=== PATIENT | male | born 1945 | race Two or more races ===

== ENCOUNTER 2018-03-24 06:31 | Inpatient (IN) | payer MEDICARE ==
[2018-03-24] VITALS (18 sets, daily range): BP systolic 90–156; BP diastolic 42–83
[~2018-03-24] VITALS: Ht 182.9 cm; Wt 113.4 kg
[~2018-03-24 06:31] MED LIST: ASPIR 8181 MG ORAL; ATORVASTATIN CA20 MG ORAL; MACROBID100 MG ORAL; PLAVIX75 MG ORAL; TAMSULOSIN HCL0.4 MG ORAL; TOPROL PO; VITAMIN D400 INTLU ORAL
[2018-03-24] MEDS ORDERED: ceFAZolin sod 1 GM in NS 55 ML IVPB ONE (07:00)
[2018-03-24] MEDS ORDERED: cefOXitin 2gm Inj ONE (07:45)
[2018-03-24] MEDS ORDERED: Succinylcholine 20mg/ml 10ml vial ONE (07:46)
[2018-03-24] MEDS ORDERED: Zemuron 50mg/5ml Inj IV ONE (07:46)
[2018-03-24] MEDS ORDERED: fentaNYL 100 mcg/2 mL IV ONE (07:50)
[2018-03-24] MEDS ORDERED: Midazolam 2mg/2ml Inj ONE (07:50)
[2018-03-24] MEDS ORDERED: Lidocaine 1% MPF 10mg/ml 5ml ONE (07:54)
[2018-03-24] MEDS ORDERED: Propofol 200mg/20ml IV ONE (07:54)
[2018-03-24] MEDS ORDERED: ProvayBlue 5mg/ml 10ml amp INJ SCH (08:00)
[2018-03-24] MEDS ORDERED: Neostigmine 1mg/ml 10ml Inj ONE (08:30)
[2018-03-24] MEDS ORDERED: NS Irrig 1000ml ONE (08:30)
[2018-03-24] MEDS ORDERED: Sterile Water Irrig 1000ml IRRIG ONE (08:30)
[2018-03-24] MEDS ORDERED: LR 1000ml ONE (08:30)
--- NOTE | 2018-03-24 08:32 | Anethesia Preoperative Eval ---
Anesthesia Pre-op PMH/ROS General Date of Evaluation: Mar 24, 2018 Time of Evaluation: 08:31 Anesthesiologist: Sandra ASA Score: ASA 3 Mallampati Score Class I : Soft palate, uvula, fauces, pillars visible Class II: Soft palate, uvula, fauces visible Class III: Soft palate, base of uvula visible Class IV: Only hard plate visible Mallampati Classification: Class III Surgeon: Dagoberto Diagnosis: BPH Surgical Procedure: Prostatectomy Anesthesia History: none Family History: no anesthesia problems Allergies: Coded Allergies: No Known Allergies (Unverified , 03/24/18) Past Medical History Cardiovascular: Reports: HTN, CAD - stable no recent CP; Denies: FL, valve dz, arrhythmia, other Pulmonary: Reports: GARY; Denies: asthma, COPD, other Gastrointestinal/Genitourinary: Reports: GERD - mild, CRI - High creatinin level, other - BPH; Denies: ESRD Neurologic/Psychiatric: Denies: dementia, CVA, depression/anxiety, TIA, other Endocrine: Reports: DM - borderline; Denies: hypothyroidism, steroids, other HEENT: Denies: cataract (L), cataract (R), glaucoma, POINT LAY IRA (L), PO[place] LAY IRA (R), other Hematology/Immune: Reports: DVT - h/o L LE off xarelta; Denies: anemia, bleeding disorder, other Musculoskeletal/Integumentary: Reports: DJD; Denies: OA, RA, DDD, edema, other Other: obesity PMH Narrative: as above PSxH Narrative: Appendectomy, ex laparotomy, uvuloplasty coronary angiogram with stent placement Anesthesia Pre-op Phys. Exam Physician Exam Last Vital Signs Date Time Temp Pulse Resp B/P (MAP) Pulse Ox O2 Delivery O2 Flow Rate FiO2 03/24/18 07:45 Room Air 03/24/18 07:17 97.2 58 18 130/80 (97) 95 97.2 Constitutional: NAD Neurologic: CN 2-12 intact Cardiovascular: RRR, no M/R/G Respiratory: CTA Gastrointestinal: other - obesity Airway Exam Mallampati Score: Class III MO: limited Neck: short ROM: limited Teeth: missing Dentures: no upper, no lower Anesthesia Pre-op A/P Labs See chart Studies Pre-op Studies: EKG - SR, other - Negative stress test Risk Assessment & Plan Assessment: ASA 3 Plan: GA with ETT Status Change Before Surgery: No Pre-Antibiotics Drug: Cefoxitin 2 gr. Given Within 1 Hr of Incision: Yes Time Given: 08:50 Jameson Flores MD Mar 24, 2018 08:32
--- NOTE | 2018-03-24 08:40 | Pre-Procedure Note/Attestation ---
Pre-Procedure Note/Attestation Complete Prior to Procedure Planned Procedure: not applicable Procedure Narrative: open prostatectomy cystolopaxy Indications for Procedure Pre-Operative Diagnosis: bph bladder stones Attestation I attest that I discussed the nature of the procedure; its benefits; risks and complications; and alternatives (and the risks and benefits of such alternatives ), prior to the procedure, with the patient (or the patient's legal passenger relations representative). I attest that, if there was a reasonable possibility of needing a blood transfusion, the patient (or the patient's legal passenger relations representative) was given the [facility] standardized written summary, pursuant to the Peter Jesus Blood Safety Act ([place] Health and Safety Code # 1645, as amended). I attest that I re-evaluated the patient just prior to the surgery and that there has been no change in the patient's H&P, except as documented below: Micheal Arenas MD Mar 24, 2018 08:40
[2018-03-24] MEDS ORDERED: Morphine Sulfate 10mg/ml Inj ONE (09:21)
[2018-03-24] MEDS ORDERED: Glycopyrrolate 0.2mg/ml 1ml Vial ONE (09:25)
[2018-03-24] MEDS ORDERED: Sodium Chloride 10ml vial INJ ONE ×2 (09:25→09:40)
[2018-03-24] MEDS ORDERED: LR 1000ml 1,000 ML IVLG SCH (09:35)
[2018-03-24] MEDS ORDERED: ePHEDrine 50mg/ml Inj ONE (09:40)
[2018-03-24] MEDS ORDERED: DiphenhydrAMINE 50mg/ml Inj IVP PRN (09:45)
[2018-03-24] MEDS ORDERED: Morphine Sulfate 2mg/ml Inj(IV/IM USE ONLY) IVP PRN (09:45)
[2018-03-24] MEDS ORDERED: Neosporin Oint Ud Pkt TOPIC ONE (10:04)
--- NOTE | 2018-03-24 10:21 | Brief Operative Note ---
Immediate Post Operative Note Operative Note Pre-op Diagnosis: bph bladder stones Procedure: open prostatectomy cystolopaxy Post-op Diagnosis: same Post-op Diagnosis: same as pre-op Surgeon: René Arenas Anesthesia: general Specimen: yes Complications: none Condition: stable Fluids: 1000 Estimated Blood Loss: minimal Implant(s) used?: No Micheal Arenas MD Mar 24, 2018 10:21
--- NOTE | 2018-03-24 10:27 | Immediate Post-Op Evaluation ---
Immediate Post-Op Evalulation Immediate Post-Op Evalulation Procedure: Open prostatectomy Date of Evaluation: Mar 24, 2018 Time of Evaluation: 10:25 IV Fluids: 2000 Blood Products: Albumin 250 Estimated Blood Loss: 500 Urinary Output: n/a Blood Pressure Systolic: 105 Blood Pressure Diastolic: 52 Pulse Rate: 74 Respiratory Rate: 20 O2 Sat by Pulse Oximetry: 99 Temperature (Fahrenheit): 97.6 Pain Score (1-10): 1 Nausea: No Vomiting: No Complications none Patient Status: reacts, patent, extubated, none Hydration Status: adequate Jameson Flores MD Mar 24, 2018 10:27
[2018-03-24] MEDS: fentaNYL 100 mcg/2 mL IV PRN ×4 (10:43→11:18)
[2018-03-24 11:12] LABS: BASOPHILS % (AUTO) 0.5 % (0.0-2.0); EOSINOPHILS % (AUTO) 0.9 % (0.0-3.0); HEMATOCRIT 40.5 % (42.0-52.0); HEMOGLOBIN 13.5 G/DL (14.2-18.0); LYMPHOCYTES % (AUTO) 15.5 % (20.0-45.0); MEAN CORPUSCULAR VOLUME 86 FL (80-99); MONOCYTES % (AUTO) 4.2 % (1.0-10.0); NEUTROPHILS % (AUTO) 78.9 % (45.0-75.0); PLATELET COUNT 106 K/UL (150-450); RED CELL DISTRIBUTION WIDTH 12.4 % (11.6-14.8); WHITE BLOOD COUNT 8.4 K/UL (4.8-10.8)
[2018-03-24] MEDS ORDERED: Morphine Sulfate 4mg/ml Inj (IV USE ONLY) IVP PRN (11:26)
[2018-03-24] MEDS ORDERED: Morphine Sulfate 4mg/ml Inj (IV USE ONLY) ONE (11:28)
[2018-03-24 11:49] LABS: ANION GAP 11 mmol/L (5-15); BLOOD UREA NITROGEN 18 mg/dL (7-18); CALCIUM 8.3 MG/DL (8.5-10.1); CARBON DIOXIDE 24 MMOL/L (21-32); CHLORIDE 107 MMOL/L (98-107); CREATININE 1.8 MG/DL (0.55-1.30); POTASSIUM 4.9 MMOL/L (3.5-5.1); SODIUM 142 MMOL/L (136-145)
[2018-03-24] MEDS: D5 1/2NS w/KCl 20mEq 1,000 ML IV SCH ×2 (13:50→23:26)
[2018-03-24] MEDS: ceFAZolin sod 2 GM in D5W 110 ML IV SCH (16:12)
[2018-03-24] MEDS: Docusate 100mg cap ORAL SCH (17:31)
[2018-03-24] MEDS: HYDROmorphone 1mg/ml Carpuject IVP PRN (19:42)
[2018-03-25] MEDS: ceFAZolin sod 2 GM in D5W 110 ML IV SCH (00:14)
[2018-03-25] MEDS: HYDROmorphone 1mg/ml Carpuject IVP PRN ×4 (00:14→23:16)
[2018-03-25 00:55] VITALS: BP 150/68
[2018-03-25] MEDS: Norco 5mg/325mg tab ORAL PRN ×2 (02:58→15:04)
[2018-03-25 04:56] VITALS: BP 151/78
[2018-03-25 07:00] LABS: HEMATOCRIT 37.1 % (42.0-52.0); HEMOGLOBIN 12.4 G/DL (14.2-18.0); MEAN CORPUSCULAR VOLUME 86 FL (80-99); PLATELET COUNT 113 K/UL (150-450); RED BLOOD COUNT 4.33 M/UL (4.70-6.10); RED CELL DISTRIBUTION WIDTH 12.1 % (11.6-14.8); WHITE BLOOD COUNT 8.9 K/UL (4.8-10.8)
[2018-03-25 07:11] LABS: ANION GAP 8 mmol/L (5-15); BLOOD UREA NITROGEN 16 mg/dL (7-18); CALCIUM 8.2 MG/DL (8.5-10.1); CARBON DIOXIDE 26 MMOL/L (21-32); CHLORIDE 105 MMOL/L (98-107); CREATININE 1.5 MG/DL (0.55-1.30); POTASSIUM 4.4 MMOL/L (3.5-5.1); SODIUM 139 MMOL/L (136-145)
--- NOTE | 2018-03-25 07:25 | 48 Hour Post Anesthesia Eval ---
Post Anesthesia Evaluation Procedure: Open prostatectomy Date of Evaluation: Mar 25, 2018 Time of Evaluation: 07:23 Blood Pressure Systolic: 152 0: 84 Pulse Rate: 76 Respiratory Rate: 22 Temperature (Fahrenheit): 97.6 O2 Sat by Pulse Oximetry: 98 Airway: patent Nausea: No Vomiting: No Pain Intensity: 3 Hydration Status: adequate Cardiopulmonary Status: stable Mental Status/LOC: patient returned to baseline Follow-up Care/Observations: n/a Post-Anesthesia Complications: none Follow-up care needed: N/A Jameson Flores MD Mar 25, 2018 07:25
[2018-03-25 08:00] VITALS: BP 157/73
[2018-03-25] MEDS: Docusate 100mg cap ORAL SCH ×2 (08:57→17:27)
[2018-03-25] MEDS: Metoprolol Succinate XL 50mg tab ORAL SCH (09:25)
[2018-03-25] MEDS: D5 1/2NS w/KCl 20mEq 1,000 ML IV SCH ×2 (09:59→20:38)
[2018-03-25] MEDS ORDERED: Hydrogen Peroxide 473ml Bottle TOPIC ONE (10:00)
[2018-03-25] MEDS: Neosporin Oint 15gm TOPIC SCH ×2 (10:11→17:28)
[2018-03-25 12:00] VITALS: BP 136/78
--- NOTE | 2018-03-25 12:00 | History and Physical Report ---
DATE OF ADMISSION: 03/24/2018 INTERNAL MEDICINE CONSULTATION/HISTORY AND PHYSICAL HISTORY OF PRESENT ILLNESS: This is a 72-year-old male, who has undergone open prostatectomy and cystopexy by Dr. Micheal Arenas yesterday. He has had minimal blood loss. He is seen in the medical unit. He is sitting up in a chair without exertion, IV fluids are in place. He is tolerating ice chips. Medical history notable for history of cardiac stent for which he has been on Plavix for the last 10 years. He also has a history of prothrombin gene mutation and has been taking Xarelto in the past due to a DVT two years ago, but for the last year has only been on Plavix and aspirin. He is also known hypertensive on metoprolol, has hyperlipidemia on Lipitor. He has undergone surgery yesterday, which was uncomplicated. PAST MEDICAL HISTORY: Coronary artery disease, history of DVT, BPH, hypertension, hyperlipidemia, melanoma, prediabetes, prothrombin gene mutation, sleep apnea, and vitamin D deficiency. SOCIAL HISTORY: Noncontributory. No history of alcohol or tobacco usage. ALLERGIES: To Lipitor causing muscle aches. However, I note that he is still on Lipitor. He is also allergic to Zocor for same problem. REVIEW OF SYSTEMS: Denies any headaches, hematemesis, melena, hematochezia, night sweats, or weight loss. PHYSICAL EXAMINATION: GENERAL: Reveals a 72-year-old male. HEENT: Unremarkable. LUNGS: Clear breath sounds bilaterally. ABDOMEN: Soft. NEUROLOGIC: Nonfocal. LABORATORY DATA: Lab testing obtained this morning shows normal CBC and BMP, hemoglobin 12.4 and creatinine 1.5. IMPRESSION: 1. Postop day #1, status post open prostatectomy and cystopexy. 2. Hypertension. 3. History of DVT. 4. History of prothrombin gene mutation. 5. CAD, status post cardiac stent. DISCUSSION: Hold off on home medications. Given that his urine is still pink, I would avoid Plavix and aspirin. I will initiate SCDs given his high risk for DVT. Start him on clear liquid diet. Check laboratories in a.m. Continue bladder irrigation. Discussed in detail. We will follow carefully. Ankit Randle M.D. DR: LON JOB#: [id number] CC:
[2018-03-25 16:00] VITALS: BP 131/75
[2018-03-25] MEDS: Hydrogen Peroxide 473ml Bottle TOPIC SCH (17:28)
[2018-03-25 20:00] VITALS: BP 150/72
--- NOTE | 2018-03-25 22:00 | Operative Note - Dictated ---
DATE OF OPERATION: 03/24/2018 PREOPERATIVE DIAGNOSES: Benign prostatic hyperplasia, bladder stone, and recurrent urinary tract infections. POSTOPERATIVE DIAGNOSES: Benign prostatic hyperplasia, bladder stone, and recurrent urinary tract infections. OPERATION: Simple open retropubic prostatectomy with cystolitholapaxy. CONTROL ROOM OPERATOR: Micheal Arenas M.D. QUESTIONED DOCUMENTS EXAMINER: Taran Jones M.D. FINDINGS: Bladder stone, large prostate. INDICATIONS FOR SURGERY: The patient is well known to me from many, many years with history of BPH with alpha blockers and elevated PSA, had several biopsies, developed chronic UTIs. Cystoscopy showed presence of bladder stone. Treatment options were explained to him in great length including all potential complications. He signed the consent. DESCRIPTION OF SURGERY: The patient was brought to the operating room, placed in supine position, and prepped and draped in standard fashion. Under general anesthesia, a Pfannenstiel incision was made. Retropubic space was . The bladder was mobilized and cleared from surrounding fat. Prostate capsule was opened and the prostate adenoma was enucleated in one piece due to large size, approximately 150 g. Bladder neck was then inspected. Ureters were intact. There was a stone in the bladder, which was removed and sent for pathologic examination. Hemostatic sutures were placed at the 5 and 7 o'clock of the bladder neck. The bladder mucosa was advanced into the prostatic capsule. After that, a 24 three-way Berumen was placed and the capsule of the prostate was closed with a running suture of #0 Vicryl. The bladder was tested, no evidence of leaks. Estimated blood loss was approximately 50 mL. Berumen was irrigated and connected to CBI. The sponge count and instrument count was correct. Micheal Arenas M.D. DR: MAGDA JOB#: [id number] CC:
[2018-03-26] VITALS: BP 139/71
[2018-03-26 04:00] VITALS: BP 149/85
[2018-03-26] MEDS: D5 1/2NS w/KCl 20mEq 1,000 ML IV SCH (05:56)
[2018-03-26 06:45] LABS: HEMATOCRIT 35.1 % (42.0-52.0); HEMOGLOBIN 11.8 G/DL (14.2-18.0); MEAN CORPUSCULAR VOLUME 85 FL (80-99); PLATELET COUNT 115 K/UL (150-450); RED BLOOD COUNT 4.11 M/UL (4.70-6.10); RED CELL DISTRIBUTION WIDTH 11.8 % (11.6-14.8); WHITE BLOOD COUNT 9.6 K/UL (4.8-10.8)
[2018-03-26 07:15] LABS: ANION GAP 7 mmol/L (5-15); BLOOD UREA NITROGEN 18 mg/dL (7-18); CALCIUM 8.7 MG/DL (8.5-10.1); CARBON DIOXIDE 27 MMOL/L (21-32); CHLORIDE 104 MMOL/L (98-107); CREATININE 1.6 MG/DL (0.55-1.30); POTASSIUM 4.3 MMOL/L (3.5-5.1); SODIUM 138 MMOL/L (136-145)
[2018-03-26 08:00] VITALS: BP 144/76
[2018-03-26] MEDS: Metoprolol Succinate XL 50mg tab ORAL SCH (09:41)
[2018-03-26] MEDS: Docusate 100mg cap ORAL SCH ×2 (09:41→17:18)
--- NOTE | 2018-03-26 10:51 | Pulmonology Progress Note ---
Assessment/Plan Assessment/Plan IMPRESSION: 1. Postop day #2, status post open prostatectomy and cystopexy. 2. Hypertension. 3. History of DVT. 4. History of prothrombin gene mutation. 5. CAD, status post cardiac stent. DISCUSSION: Hold off on home medications. Given that his urine is still pink, I would avoid Plavix and aspirin. I will initiate SCDs given his high risk for DVT. Regular diet. Check laboratories in a.m. Continue bladder irrigation. Discussed in detail. I will follow carefully. Subjective Interval Events: urine still pink. Bladder irrigation continuing Constitutional: Reports: no symptoms HEENT: Repors: no symptoms Respiratory: Reports: no symptoms Cardiovascular: Reports: no symptoms Gastrointestinal/Abdominal: Reports: no symptoms Genitourinary: Reports: no symptoms Allergies: Coded Allergies: No Known Allergies (Unverified , 03/24/18) Objective Last 24 Hour Vital Signs Date Time Temp Pulse Resp B/P (MAP) Pulse Ox O2 Delivery O2 Flow Rate FiO2 03/26/18 09:41 95 144/76 03/26/18 08:00 98.0 95 21 144/76 (98) 99 98.0 03/26/18 04:00 99.9 86 19 149/85 (106) 94 99.9 03/26/18 00:00 98.0 80 18 139/71 (93) 98 98.0 03/25/18 23:46 98.5 03/25/18 21:00 Room Air 03/25/18 20:00 98.5 83 18 150/72 (98) 96 98.5 03/25/18 18:00 97.6 97.6 03/25/18 16:03 98.3 03/25/18 16:00 99.4 103 19 131/75 (93) 97 99.4 03/25/18 15:04 98.3 03/25/18 12:00 98.3 90 19 136/78 (97) 95 98.3 Intake and Output 03/25/18 03/26/18 19:00 07:00 Intake Total 1950 ml 1660 ml Output Total 750 ml 1950 ml Balance 1200 ml -290 ml Intake Oral 750 ml 560 ml IV Total 1200 ml 1100 ml Output Urine Total 750 ml 1950 ml General Appearance: no acute distress HEENT: normocephalic Respiratory/Chest: chest wall non-tender, lungs clear Cardiovascular: normal peripheral pulses, normal rate Abdomen: normal bowel sounds Laboratory Tests 03/26/18 05:50: White Blood Count 9.6, Red Blood Count 4.11L, Hemoglobin 11.8L, Hematocrit 35.1L , Mean Corpuscular Volume 85, Mean Corpuscular Hemoglobin 28.7, Mean Corpuscular Hemoglobin Concent 33.6, Red Cell Distribution Width 11.8, Platelet Count 115L, Mean Platelet Volume 8.4, Neutrophils (%) (Auto) , Lymphocytes (%) ( Auto) , Monocytes (%) (Auto) , Eosinophils (%) (Auto) , Basophils (%) (Auto) , Differential Total Cells Counted 100, Neutrophils % (Manual) 87H, Lymphocytes % (Manual) 6L, Monocytes % (Manual) 6, Eosinophils % (Manual) 0, Basophils % ( Manual) 0, Band Neutrophils 1, Platelet Estimate DecreasedL, Platelet Morphology Normal, Red Blood Cell Morphology Normal, Sodium Level 138, Potassium Level 4.3, Chloride Level 104, Carbon Dioxide Level 27, Anion Gap 7, Blood Urea Nitrogen 18, Creatinine 1.6H, Estimat Glomerular Filtration Rate , Glucose Level 130H, Calcium Level 8.7 Current Medications Medications (Trade) Dose Ordered Sig/Kam Route PRN Reason Start Time Stop Time Status Last Admin Dose Admin Acetaminophen (Tylenol) 650 mg Q6H PRN ORAL Mild Pain (Pain Scale 1-3) 03/24/18 13:30 04/23/18 13:29 Acetaminophen/ Hydrocodone Bitart ([place] 5/325) 1 tab Q4H PRN ORAL Moderate Pain (Pain Scale 4-6) 03/24/18 13:30 03/31/18 13:29 03/25/18 15:04 Dextrose/ Electrolytes 1,000 ml @ 100 mls/hr Q10H IV 03/24/18 14:00 04/23/18 13:59 03/26/18 05:56 Docusate Sodium (Colace) 100 mg TWICE A DAY ORAL 03/24/18 18:00 04/23/18 17:59 03/26/18 09:41 Hydrogen Peroxide (Hydrogen Peroxide) 1 applic BID TOPIC 03/25/18 18:00 04/24/18 17:59 03/25/18 17:28 Hydromorphone HCl (Dilaudid) 1 mg Q3H PRN IVP pain score 4-6 03/24/18 13:30 03/31/18 13:29 03/25/18 23:16 Metoprolol Succinate (Toprol XL) 50 mg DAILY ORAL 03/25/18 09:00 04/24/18 08:59 03/26/18 09:41 Neomycin/ Polymyxin/ Bacitracin (Neosporin Oint 15gm) 1 applic TWICE A DAY TOPIC 03/25/18 10:00 04/24/18 09:59 03/25/18 17:28 Ondansetron HCl (Zofran) 4 mg Q6H PRN IVP Nausea & Vomiting 03/24/18 13:30 04/23/18 13:29 Temazepam (Restoril) 7.5 mg QHS PRN ORAL Insomnia 03/24/18 21:00 03/31/18 20:59 03/26/18 01:51 Ankit Randle MD Mar 26, 2018 10:51
[2018-03-26] MEDS: Hydrogen Peroxide 473ml Bottle TOPIC SCH ×2 (11:00→17:19)
[2018-03-26] MEDS: Neosporin Oint 15gm TOPIC SCH ×2 (11:00→17:19)
[2018-03-26 12:00] VITALS: BP 149/71
[2018-03-26] MEDS: Ciprofloxacin 500mg tab ORAL SCH ×2 (13:15→21:02)
[2018-03-26 16:00] VITALS: BP 155/79
[2018-03-26 20:00] VITALS: BP 138/73
[2018-03-27] VITALS: BP 148/72
[2018-03-27 04:00] VITALS: BP 136/82
[2018-03-27 06:17] LABS: BASOPHILS % (AUTO) 0.4 % (0.0-2.0); EOSINOPHILS % (AUTO) 0.6 % (0.0-3.0); HEMATOCRIT 34.3 % (42.0-52.0); LYMPHOCYTES % (AUTO) 10.6 % (20.0-45.0); MEAN CORPUSCULAR VOLUME 86 FL (80-99); MONOCYTES % (AUTO) 5.9 % (1.0-10.0); NEUTROPHILS % (AUTO) 82.6 % (45.0-75.0); PLATELET COUNT 130 K/UL (150-450); RED BLOOD COUNT 4.01 M/UL (4.70-6.10); WHITE BLOOD COUNT 9.1 K/UL (4.8-10.8)
[2018-03-27 06:47] LABS: ANION GAP 7 mmol/L (5-15); BLOOD UREA NITROGEN 19 mg/dL (7-18); CALCIUM 9.1 MG/DL (8.5-10.1); CARBON DIOXIDE 28 MMOL/L (21-32); CHLORIDE 104 MMOL/L (98-107); CREATININE 1.5 MG/DL (0.55-1.30); SODIUM 139 MMOL/L (136-145)
[2018-03-27 08:00] VITALS: BP 135/70
[2018-03-27 08:38] VITALS: BP 135/70
[2018-03-27] MEDS: Hydrogen Peroxide 473ml Bottle TOPIC SCH (08:38)
[2018-03-27] MEDS: Ciprofloxacin 500mg tab ORAL SCH (08:38)
[2018-03-27] MEDS: Docusate 100mg cap ORAL SCH (08:38)
[2018-03-27] MEDS: Metoprolol Succinate XL 50mg tab ORAL SCH (08:38)
[2018-03-27] MEDS: Neosporin Oint 15gm TOPIC SCH (08:39)
--- NOTE | 2018-03-27 10:14 | Pulmonology Progress Note ---
Assessment/Plan Assessment/Plan IMPRESSION: 1. Postop day #3, status post open prostatectomy and cystopexy. 2. Hypertension. 3. History of DVT. 4. History of prothrombin gene mutation. 5. CAD, status post cardiac stent. DISCUSSION: DC home Given that his urine is still pink, I would avoid Plavix and aspirin. I Regular diet. Discontinue bladder irrigation. Discussed in detail. I will follow carefully. Subjective Interval Events: Doing well Constitutional: Reports: no symptoms Respiratory: Reports: no symptoms Gastrointestinal/Abdominal: Reports: no symptoms Genitourinary: Reports: no symptoms Allergies: Coded Allergies: No Known Allergies (Unverified , 03/24/18) Objective Last 24 Hour Vital Signs Date Time Temp Pulse Resp B/P (MAP) Pulse Ox O2 Delivery O2 Flow Rate FiO2 03/27/18 09:00 Room Air 03/27/18 08:38 91 135/70 03/27/18 08:00 98.0 91 20 135/70 (91) 96 98.0 03/27/18 04:00 98.6 76 18 136/82 (100) 96 98.6 03/27/18 00:00 99.2 79 19 148/72 (97) 96 99.2 03/26/18 21:00 Room Air 03/26/18 20:00 98.8 82 19 138/73 (94) 97 98.8 03/26/18 16:00 99.8 90 21 155/79 (104) 90 99.8 03/26/18 12:00 98.9 86 22 149/71 (97) 99 98.9 Intake and Output 03/26/18 03/27/18 19:00 07:00 Intake Total 3020 ml 1140 ml Output Total 3200 ml 2950 ml Balance -180 ml -1810 ml Intake Oral 3020 ml 1140 ml Output Urine Total 3200 ml 2950 ml # Bowel Movements 2 1 General Appearance: no acute distress HEENT: mucous membranes moist Respiratory/Chest: chest wall non-tender Cardiovascular: normal peripheral pulses, normal rate Abdomen: normal bowel sounds, soft, non tender Laboratory Tests 03/27/18 05:05: White Blood Count 9.1, Red Blood Count 4.01L, Hemoglobin 12.0L, Hematocrit 34.3L , Mean Corpuscular Volume 86, Mean Corpuscular Hemoglobin 29.8, Mean Corpuscular Hemoglobin Concent 34.8, Red Cell Distribution Width 12.0, Platelet Count 130L, Mean Platelet Volume 7.8, Neutrophils (%) (Auto) 82.6H, Lymphocytes (%) (Auto) 10.6L, Monocytes (%) (Auto) 5.9, Eosinophils (%) (Auto) 0.6, Basophils (%) (Auto) 0.4, Sodium Level 139, Potassium Level 4.0, Chloride Level 104, Carbon Dioxide Level 28, Anion Gap 7, Blood Urea Nitrogen 19H, Creatinine 1.5H, Estimat Glomerular Filtration Rate , Glucose Level 109H, Calcium Level 9.1 Current Medications Medications (Trade) Dose Ordered Sig/Kam Route PRN Reason Start Time Stop Time Status Last Admin Dose Admin Acetaminophen (Tylenol) 650 mg Q6H PRN ORAL Mild Pain (Pain Scale 1-3) 03/24/18 13:30 04/23/18 13:29 Acetaminophen/ Hydrocodone Bitart ([place] 5/325) 1 tab Q4H PRN ORAL Moderate Pain (Pain Scale 4-6) 03/24/18 13:30 03/31/18 13:29 03/25/18 15:04 Ciprofloxacin (Cipro 500mg tab) 500 mg Q12HR ORAL 03/26/18 12:15 04/02/18 12:14 03/27/18 08:38 Docusate Sodium (Colace) 100 mg TWICE A DAY ORAL 03/24/18 18:00 04/23/18 17:59 03/27/18 08:38 Hydrogen Peroxide (Hydrogen Peroxide) 1 applic BID TOPIC 03/25/18 18:00 04/24/18 17:59 03/27/18 08:38 Hydromorphone HCl (Dilaudid) 1 mg Q3H PRN IVP pain score 4-6 03/24/18 13:30 03/31/18 13:29 03/25/18 23:16 Metoprolol Succinate (Toprol XL) 50 mg DAILY ORAL 03/25/18 09:00 04/24/18 08:59 03/27/18 08:38 Neomycin/ Polymyxin/ Bacitracin (Neosporin Oint 15gm) 1 applic TWICE A DAY TOPIC 03/25/18 10:00 04/24/18 09:59 03/27/18 08:39 Ondansetron HCl (Zofran) 4 mg Q6H PRN IVP Nausea & Vomiting 03/24/18 13:30 04/23/18 13:29 Temazepam (Restoril) 7.5 mg QHS PRN ORAL Insomnia 03/24/18 21:00 03/31/18 20:59 03/26/18 01:51 Anikt Randle MD Mar 27, 2018 10:14
[2018-03-27] MEDS ORDERED: DOK100 M1 ORAL (10:16)
[2018-03-27] MEDS ORDERED: NORCO 5-325 TA1 EACH ORAL (10:16)
[2018-03-27] MEDS ORDERED: LEVAQUIN500 MG ORAL (10:16)
[2018-03-27] MEDS ORDERED: Tubing IV Secondary IV ONE (10:39)
[2018-03-27] MEDS ORDERED: NS Irrig 4000ml IRRIG ONE (10:39)
--- NOTE | 2018-03-30 13:12 | Discharge Summary ---
Discharge Summary Hospital Course Date of Admission Mar 24, 2018 at 06:31 Date of Discharge Mar 27, 2018 at 11:55 Admitting Diagnosis Benign prostatic hyperplasia, Bladder stone Recurrent urinary tract infections. Reason for Hospitalization: elective surgery HPI Presley Arzate is a 72 year old male who was admitted on Mar 24, 2018 at 06:31 for Benign prostatic hyperplasia, Bladder stone ,Recurrent urinary tract infections. Patient was admitted for elective pathology Consultations dr Randle IM Procedures s/p 03/24/[address] Arenas Simple open retropubic prostatectomy with cystolitholapaxy. Hospital Course s/p surgery course of recovery uneventful pain management addressed , pain controlled initially IV fluids until tolerated diet continuous bladder irrigation via 3-way Berumen manual irrigation prn dressing clean dry and intact empiric antibiotic started on diet as tolerated, able to tolerate, IVF dc incentive spirometry while in the bed out of bed and ambulate with fall precautions, ambulated freely bowel regimen instituted blood pressure was managed with beta liban ,remained stable continuous bladder irrigation discontinued , urine still pain but no clots aspirin and Plavix still on hold as per IM doctor until further notice afebrile, no leukocytosis , renal parameters at baseline pathology of prostate tissue c/w BPH patient was stable for discharge discharge instruction provided follow-up with primary care provider and surgeon as advised FINAL DIAGNOSES Benign prostatic hyperplasia Bladder stone Recurrent urinary tract infections. s/p simple open retropubic prostatectomy with cystolitholapaxy. Hypertension. History of DVT. History of prothrombin gene mutation. CAD, status post cardiac stent. Discharge Medications New Medications: Levofloxacin* (Levaquin*) 500 Mg Tablet 500 MG ORAL DAILY for 7 Days, TAB Docusate Sodium (Dok) 100 Mg Capsule 100 MG ORAL TWICE A DAY for 30 Days, CAP Hydrocodone Bit/Acetaminophen 5-325* ([place] 5-325*) 1 Each Tablet 1 TAB ORAL Q4H PRN, #40 TAB Continued Medications: Atorvastatin Calcium* (Atorvastatin Calcium*) 20 Mg Tablet 10 MG ORAL BEDTIME, TAB (This prescription has been renewed) Tamsulosin Hcl (Tamsulosin Hcl*) 0.4 Mg Cap.er.24h 0.4 MG ORAL BEDTIME, CAP (This prescription has been renewed) [Toprol] () 50 MG PO DAILY (This prescription has been renewed) Vitamin D (Vitamin D3) 400 Unit Tablet 1000 UNITS ORAL DAILY, TAB (This prescription has been renewed) Discontinued Medications: Aspirin* (Aspir 81*) 81 Mg Tablet.dr 81 MG ORAL DAILY, TAB Clopidogrel Bisulfate* (Plavix*) 75 Mg Tablet 75 MG ORAL DAILY, TAB Nitrofurantoin Monohyd/M-Cryst (Nitrofurantoin [place]-Mcr 100 mg) 100 Mg Capsule 100 MG ORAL DAILY, CAP Discharge Condition Upon Discharge: stable Discharge Disposition Patient was discharged to Home (01) Discharge Instructions Discharge Instructions Special Instructions I have been assigned to complete a D/C Summary on this account. I was not involved in the patient management Harini Horn NP Mar 30, 2018 13:12
== END 2018-03-27 11:55 | disposition home or self-care (01) | DRG 707 ==
LOC: SDSOVERFLO 06:31 → 3E 12:30
PROC: 0TCB0ZZ Extirpation of Matter from Bladder, Open Approach (ICD-10-PCS; principal; 2018-03-24 08:30)
PROC: 0VT00ZZ Resection of Prostate, Open Approach (ICD-10-PCS; principal; 2018-03-24 08:30)
DX: N40.0 Benign prostatic hyperplasia without lower urinary tract symptoms (principal); D68.52 Prothrombin gene mutation; N21.0 Calculus in bladder; I10 Essential (primary) hypertension; I25.10 Atherosclerotic heart disease of native coronary artery without angina pectoris; Z79.02 Long term (current) use of antithrombotics/antiplatelets; Z95.5 Presence of coronary angioplasty implant and graft; Z86.718 Personal history of other venous thrombosis and embolism; E78.5 Hyperlipidemia, unspecified; R73.03 Prediabetes; G47.30 Sleep apnea, unspecified; Z87.440 Personal history of urinary (tract) infections
CPT/HCPCS: 36415; 80048; 85007; 85025; 86850; 86900; 86901; 87081; 94003; 94150; J2250; J2710